=== PATIENT | male | born 1975 | race Caucasian/White ===

== ENCOUNTER 2018-11-28 17:49 | Emergency (ER) | payer MEDICARE ==
[~2018-11-28] VITALS: Ht 165.1 cm; Wt 113.6 kg
[2018-11-28 17:53] VITALS: BP 140/90; Ht 165.1 cm; Wt 113.6 kg
== END 2018-11-28 18:22 | disposition home or self-care (01) ==
LOC: D.ER 17:49
DX: R06.02 Shortness of breath (principal); R61 Generalized hyperhidrosis